=== PATIENT | male | born 1950 | race Caucasian/White ===

== ENCOUNTER → 2024-07-25 14:44 | Outpatient (CLI) | payer MEDICARE, SELFPAY ==
--- NOTE | ~2024-07-25 | XR_ITS ---
CHEST RADIOGRAPH, PA AND LATERAL CLINICAL HISTORY: COPD WITH ACUTE EXACERBATION . COMPARISON: None available TECHNIQUE: PA and lateral views of the chest. FINDINGS Elevation of the right hemidiaphragm is identified with a possible hiatal hernia. Indeterminate appearance of the right mid to lower lung white, for which cross-sectional imaging is recommended. This may represent a pleural effusion with a large hiatal hernia versus dense opacificat ion of the right middle lobe with aerated posterior margin IMPRESSION: Indeterminate appearance of the right mid to lower lung field for which cross-sectional imaging (nonc ontrast enhanced CT examination of the chest) is recommended for further evaluation. Reviewed, dictated and finalized at location A. [facility] [employer] IMPRESSION: Indeterminate appearance of the right mid to lower lung field for which cross-s ectional imaging (noncontrast enhanced CT examination of the chest) is recommen ded for further evaluation.
== END ==
PROVIDERS: PCP Nurse Practitioner Family; Visit Provider Nurse Practitioner Family
DX: J44.1 Chronic obstructive pulmonary disease with (acute) exacerbation (principal)
CPT/HCPCS: 71046